=== PATIENT | female | born 1950 | race Caucasian/White ===

== ENCOUNTER 2023-12-24 11:41 | Emergency (ER) | payer OTHER ==
[2023-12-24 12:15] LABS: Absolute Basophils 0.1 K/uL (0-0.5); Absolute Eosinophils 0.5 K/uL (0-0.5); Absolute Lymphocytes (CBC) 2.1 K/uL (0.7-4.9); Absolute Monocytes 0.6 K/uL (0.1-1.3); Absolute Neutrophil 3.5 K/uL (1.8-8.0); Basophils % 1.1 % (0-1.3); Eosinophils % 6.8 % (0-4.4); Hematocrit 42.7 % (36.0-45.0); Hemoglobin 14.2 g/dL (12.0-15.0); Lymphocytes % 31.1 % (15.3-44.8); MCH 28.6 pg (27.0-35.0); MCHC 33.2 g/dL (32.0-36.0); MCV 86.2 fL (80-100); MPV 7.7 fL (7.6-11.3); Monocytes % 8.8 % (3.3-12.3); Neutrophils % 52.2 % (41.7-73.7); Platelets 300 thou/uL (152-406); RBC Red Blood Cell Count 4.95 M/uL (3.86-4.86); Red Cell Distribution Width 14.8 % (12.1-15.2)
--- NOTE | 2023-12-24 12:30 | RAD REPORT ---
EXAM DESCRIPTION: Norberto Single View12/24/2023 12:19 pm CLINICAL HISTORY: dizzines COMPARISON: No comparisons TECHNIQUE: Portable AP view of the chest. FINDINGS: The lungs are clear apart from right mild basilar atelectasis. No pneumothorax or effusi on. Mild prominence of the cardiac silhouette. Tortuosity of the thoracic aorta with arch calcific pl aque. IMPRESSION: No acute cardiopulmonary process. Findings as above.
[2023-12-24 12:34] LABS: Albumin 3.3 g/dL (3.4-5.0); Albumin/Globulin Ratio 0.7 (1.1-1.8); Anion Gap 8.8 mEq/L (5.0-15.0); Bilirubin Direct 0.1 mg/dL (0-0.2); Bilirubin Indirect, Calculated 0.3 mg/dL (0.2-0.8); Bilirubin Total 0.4 mg/dL (0.2-1.0); Globulin 4.6 g/dL (2.3-3.5); Magnesium 2.4 mg/dL (1.6-2.4); Potassium 3.8 mEq/L (3.5-5.1); Protein, Total 7.9 g/dL (6.4-8.2); Troponin High Sensitivity 5.7 pg/mL (<58.9)
--- NOTE | 2023-12-24 12:48 | RAD REPORT ---
EXAM DESCRIPTION: CT - Head Brain Wo Cont - 12/24/2023 12:39 pm CLINICAL HISTORY: Dizziness COMPARISON: None TECHNIQUE: Computed axial tomography of the head was obtained. IV contrast was not requested. All CT scans are performed using dose optimization technique as appropriate and may include automated exposure control or mA/KV adjustment according to patient size. FINDINGS: An intracranial bleed is not seen The ventricles are normal in caliber No extra-axial fluid collection is noted. Mild to moderate low-density areas within periventricular, deep and subcortical white matter likely r epresent ischemic changes secondary to small vessel disease. Fluid within the sinuses/ mastoids is not seen. IMPRESSION: No acute intracranial abnormality is seen If patient's symptoms persist MRI of the brain would be recommended
--- NOTE | 2023-12-24 13:07 | ER ---
Nurse's Notes [facility] Name: Taryn Chavez Age: 73 yrs Sex: Female : 1950 Arrival Date: 12/24/2023 Time: 11:41 Bed 19 Private MD: Diagnosis: Essential (primary) hypertension;Dizziness Presentation: 12/23 11:57 Chief complaint: Patient states: she has been having increased dizziness and a tingly ap3 feeling in her head since 12/14/2023 after injections in her throat. patient reports she had high blood pressure this morning and her daughter in law brought her in for further evaluation. Coronavirus screen: At this time, the client does not indicate any symptoms associated with coronavirus-19. Ebola Screen: No symptoms or risks identified at this time. Initial Sepsis Screen: Does the patient meet any 2 criteria? No. Patient's initial sepsis screen is negative. Does the patient have a suspected source of infection? No. Patient's initial sepsis screen is negative. Risk Assessment: Do you want to hurt yourself or someone else? Patient reports no desire to harm self or others. Onset of symptoms was December 14, 2023. 11:57 Method Of Arrival: Wheelchair ap3 11:57 Acuity: ZENY 3 ap3 Triage Assessment: 11:59 General: Appears in no apparent distress. Behavior is calm, cooperative, appropriate ap3 for age. Pain: Denies pain. Neuro: Reports dizziness, tingling in head. Cardiovascular: Patient's skin is warm and dry. Respiratory: Airway is patent Respiratory effort is even, unlabored, Respiratory pattern is regular, symmetrical. Historical: - Allergies: 11:58 No Known Allergies; ap3 - PMHx: 11:58 Diabetes mellitus; Hypertensive disorder; Dementia; stroke; Osteoarthritis; ap3 - Immunization history:: Adult Immunizations unknown. - Infectious Disease History:: Denies. - Social history:: Smoking status: Patient denies any tobacco usage or history of. Screenin:00 Abuse screen: Denies threats or abuse. Nutritional screening: No deficits noted. ap3 Tuberculosis screening: No symptoms or risk factors identified. 12:09 [facility] ED Fall Risk Assessment (Adult) History of falling in the last 3 months, mb9 including since admission No falls in past 3 months (0 pts) Confusion or Disorientation No (0 pts) Intoxicated or Sedated No (0 pts) Impaired Gait No (0 pts) Mobility Assist Device Used No (0 pt) Altered Elimination No (0 pt) Score/Fall Risk Level 0 - 2 = Low Risk Oriented to surroundings, Maintained a safe environment, Educated pt \T\ family on fall prevention, incl call for assistance when getting out of bed, Assessed \T\ reinforced patient's understanding of fall precautions. Assessment: 12:11 General: Appears in no apparent distress. Behavior is calm, cooperative. Pain: Denies mb9 pain. Neuro: Valdes Agitation-Sedation Scale (RASS): 0 - Alert and Calm Level of Consciousness is awake, alert, obeys commands, Oriented to person, place, time, situation, Appropriate for age [place] are equal bilaterally Moves all extremities. Gait is steady, Speech is normal, Facial symmetry appears normal, Pupils are PERRLA, Tingling in face Numbness in face. Cardiovascular: Heart tones S1 S2 present Patient's skin is warm and dry. Respiratory: Airway is patent Respiratory effort is even, unlabored, Respiratory pattern is regular, symmetrical, Breath sounds are clear bilaterally. GI: Abdomen is round non-distended, Bowel sounds present X 4 quads. Abd is soft and non tender X 4 quads. Reports nausea. : No signs and/or symptoms were reported regarding the genitourinary system. EENT: No signs and/or symptoms were reported regarding the EENT system. Derm: Skin is pink, warm \T\ dry. Musculoskeletal: Range of motion: intact in all extremities. 13:02 Reassessment: Patient appears in no apparent distress at this time. No changes from mb9 previously documented assessment. Patient and/or family updated on plan of care and expected duration. Pain level reassessed. Patient is alert, oriented x 3, equal unlabored respirations, skin warm/dry/pink. Vital Signs: 11:57 BP 175 / 90; Pulse 67; Resp 17; Temp 97.7; Pulse Ox 97% ; ap3 12:12 BP 153 / 72; Pulse 60; Resp 16; Pulse Ox 97% on R/A; mb9 13:03 BP 163 / 71; Pulse 68; Resp 18; Pulse Ox 98% on R/A; mb9 ED Course: 11:42 Patient arrived in ED. im 11:50 Nguyễn Davila DO is Attending Physician. ms3 11:51 Breneman, Sivan, RN is Primary Nurse. mb9 11:58 Triage completed. ap3 12:00 Arm band placed on right wrist. ap3 12:00 Initial lab(s) drawn, by me, sent to lab. EKG done, by ED staff, reviewed by Nguyễn Davila DO. Inserted saline lock: 22 gauge in left antecubital area, using aseptic technique. 12:09 Placed in gown. Bed in low position. Call light in reach. Side rails up X 1. Provided denys9 Education on: press call light if needing anything. Client placed on continuous cardiac and pulse oximetry monitoring. NIBP monitoring applied. bow stapler on. 12:12 No provider procedures requiring assistance completed. mb9 12:13 Basic Metabolic Panel Sent. mb9 12:13 CBC with Diff Sent. mb9 12:13 LFT's Sent. mb9 12:13 Magnesium Sent. mb9 12:13 Troponin HS Sent. mb9 12:[address] via stretcher. hb 12:21 XRAY Chest (1 view) In Process Unspecified. EDMS 12:41 CT Head Brain wo Cont In Process Unspecified. EDMS 13:05 IV discontinued, intact, bleeding controlled, No redness/swelling at site. Pressure mb9 dressing applied. 13:06 Gatito Clinton MD is Referral Physician. ms3 Administered Medications: No medications were administered Medication: 12:10 VIS not applicable for this client. mb9 Outcome: 13:07 Discharge ordered by . ms3 13:08 Discharged to home ambulatory, mb9 13:08 Condition: stable 13:08 Discharge instructions given to patient, Instructed on discharge instructions, follow up and referral plans. Demonstrated understanding of instructions, follow-up care, 13:15 Patient left the ED. mb9 Signatures: Dispatcher [employer] EDMS Leyla Paredes RN RN Florinda Stacy RN Nguyễn Garcia DO DO ms3 Yesenia Person, RN RN mb9 Neli Hussein
--- NOTE | 2023-12-24 13:08 | EDPHYS ---
Physician Documentation [facility] Name: Taryn Chavez Age: 73 yrs Sex: Female : 1950 Arrival Date: 12/24/2023 Time: 11:41 Bed 19 Private MD: ED Physician Nguyễn Davila HPI: 12/23 12:38 This 73 yrs old Female presents to ER via Wheelchair with complaints of High Blood ms3 Pressure, Dizziness, Blurred Vision. 12:38 73-year-old female with past medical history of diabetes, hypertension, dementia, ms3 stroke, osteoarthritis presents to the emergency department for dizziness and tingling of her scalp that began on December 13. Patient took her blood pressure and noted it to be elevated today causing her daughter to bring her to the emergency department. Patient states she does have an appointment with Dr. Clinton tomorrow. Patient denies pain at this time. Patient denies any alleviating or inciting factors. Historical: - Allergies: 11:58 No Known Allergies; ap3 - PMHx: 11:58 Diabetes mellitus; Hypertensive disorder; Dementia; stroke; Osteoarthritis; ap3 - Immunization history:: Adult Immunizations unknown. - Infectious Disease History:: Denies. - Social history:: Smoking status: Patient denies any tobacco usage or history of. ROS: 12:38 Constitutional: Negative for fever, and chills. Neck: Negative for injury, pain, and ms3 swelling, Cardiovascular: Negative for chest pain, and palpitations. Respiratory: Negative for shortness of breath, cough, wheezing, and pleuritic chest pain, Abdomen/GI: Negative for abdominal pain, nausea, vomiting, diarrhea, and constipation, MS/Extremity: Negative for injury and deformity, Skin: Negative for injury, rash, and discoloration, 12:38 Neuro: Positive for dizziness, tingling, Exam: 12:38 Constitutional: This is a well developed, well nourished patient who is awake, alert, ms3 and in no acute distress. Head/Face: Normocephalic, atraumatic. Cardiovascular: Regular rate and rhythm with a normal S1 and S2. No gallops, murmurs, or rubs. Normal PMI, no JVD. No pulse deficits. Respiratory: Lungs have equal breath sounds bilaterally, clear to auscultation and percussion. No rales, rhonchi or wheezes noted. No increased work of breathing, no retractions or nasal flaring. Abdomen/GI: Soft, non-tender, with normal bowel sounds. No distension or tympany. No guarding or rebound. No evidence of tenderness throughout. Skin: Warm, dry with normal turgor. Normal color with no rashes, no lesions, and no evidence of cellulitis. MS/ Extremity: Pulses equal, no cyanosis. Neurovascular intact. Full, normal range of motion. 12:38 Neuro: Orientation: is normal, to person, place, time \T\ situation. Mentation: is normal, Memory: is normal, Cranial nerves: CN I not tested, CN II- XII are normal as tested, Cerebellar function: normal finger to nose testing, Motor: is normal, 14:01 ECG was reviewed by the Attending Physician. ms3 Vital Signs: 11:57 BP 175 / 90; Pulse 67; Resp 17; Temp 97.7; Pulse Ox 97% ; ap3 12:12 BP 153 / 72; Pulse 60; Resp 16; Pulse Ox 97% on R/A; mb9 13:03 BP 163 / 71; Pulse 68; Resp 18; Pulse Ox 98% on R/A; mb9 MDM: 11:59 Patient medically screened. ms3 12:38 Differential diagnosis: hypertensive crisis, Malignant HTN, CVA, intracerebral ms3 hemorrhage. 14:40 Data reviewed: vital signs, nurses notes, lab test result(s), EKG, radiologic studies, ms3 and as a result, I will discharge patient. Independent interpretation of the following test(s) in the Emergency Department EKG: See my EKG interpretation above X-Ray: My interpretation is Chest x-ray image reviewed by me does not reveal pneumonia. Care significantly affected by the following chronic conditions: Diabetes, Hypertension. Counseling: I had a detailed discussion with the patient and/or guardian regarding the historical points, exam findings, and any diagnostic results supporting the discharge/admit diagnosis, lab results, radiology results, the need for outpatient follow up, to return to the emergency department if symptoms worsen or persist or if there are any questions or concerns that arise at home. ED course: Discussed labs, EKG, imaging with patient. Patient to follow-up with primary care physician in 2 to 3 days. All questions were answered. Return precautions discussed include worsening symptoms, or any other concerns. On reevaluation patient is alert and oriented x 4, no apparent distress, nontoxic-appearing, ambulatory in the emergency department, speaking full sentences. 12/23 11:58 Order name: Basic Metabolic Panel; Complete Time: 12:42 ms3 12/23 11:58 Order name: CBC with Diff; Complete Time: 12:42 ms3 12/23 11:58 Order name: LFT's; Complete Time: 12:42 ms3 12/23 11:58 Order name: Magnesium; Complete Time: 12:42 ms3 12/23 11:58 Order name: Troponin HS; Complete Time: 12:42 ms3 12/23 11:58 Order name: XRAY Chest (1 view); Complete Time: 12:42 ms3 12/23 11:58 Order name: CT Head Brain wo Cont; Complete Time: 12:53 ms3 12/23 11:58 Order name: EKG; Complete Time: 11:59 ms3 12/23 11:58 Order name: Cardiac monitoring; Complete Time: 12:13 3 12/23 11:58 Order name: EKG - Nurse/Tech; Complete Time: 12:13 12/23 11:58 Order name: IV Saline Lock; Complete Time: 12:13 ms12/23 11:58 Order name: Labs collected and sent; Complete Time: 12:13 12/23 11:58 Order name: O2 Per Protocol; Complete Time: 12:13 ms3 12/23 11:58 Order name: O2 Sat Monitoring; Complete Time: 12:13 ms3 EC:01 Rate is 63 beats/min. Rhythm is regular. Left axis deviation noted. MA interval is ms3 normal. QRS interval is normal. Clinical impression: NSR w/ Non-specific ST/T Changes. Interpreted by me. Reviewed by me. Administered Medications: No medications were administered Disposition Summary: 12/24/23 13:07 Discharge Ordered Notes: Location: Home ms3 Condition: Stable ms3 Diagnosis - Essential (primary) hypertension ms3 - Dizziness ms3 Followup: ms3 - With: Gatito Clinton MD - When: 1 - 2 days - Reason: Recheck today's complaints Discharge Instructions: - Discharge Summary Sheet ms3 - Hypertension, Adult ms3 - DASH Eating Plan ms3 - Dizziness, [id number] ms3 Forms: - Medication Reconciliation Form ms3 - Antibiotic Education ms3 - Prescription Opioid Use ms3 - Patient Portal Instructions ms3 - Leadership Thank You Letter ms3 Signatures: Dispatcher [employer] Florinda Capps RN RN ap3 Nguyễn Davila DO DO ms3 Corrections: (The following items were deleted from the chart) 11:59 11:59 BASIC METABOLIC PANEL+C.LAB.BRZ ordered. EDMS EDMS 11:59 11:59 CBC+H.LAB.BRZ ordered. EDMS EDMS 11:59 11:59 HEPATIC FUNCTION+C.LAB.BRZ ordered. EDMS EDMS 11:59 11:59 MAGNESIUM+C.LAB.BRZ ordered. EDMS EDMS 11:59 11:59 Troponin High Sensitivity+C.LAB.BRZ ordered. EDMS EDMS
[2023-12-24 13:27] VITALS: BP 163/71; TEMP 97.7; O2SAT 98
== END 2023-12-24 13:15 | disposition home or self-care (01) ==
LOC: ER 11:41
DX: I10 Essential (primary) hypertension (principal); R42 Dizziness and giddiness; E11.9 Type 2 diabetes mellitus without complications; F03.90 Unspecified dementia, unspecified severity, without behavioral disturbance, psychotic disturbance, mood disturbance, and anxiety
CPT/HCPCS: 36415; 70450; 71045; 80048; 80076; 83735; 84484; 85025; 93005